=== PATIENT | male | born 1960 | race Two or more races ===

== ENCOUNTER 2025-04-17 10:16 | Outpatient (CLI) | payer OTHER ==
[2025-04-17 11:01] LABS: Hematocrit 48.4 % (41.0-53.0); Hemoglobin 16.9 g/dL (13.5-17.5); Mean Corpuscular Hemoglobin 32.3 pg (28.0-32.0); Mean Corpuscular Volume 92.5 fL (80.0-100.0); Nucleated Red Blood Cells % 0.1 %
[2025-04-17 11:05] LABS: Urine Protein, UAD Negative (Negative)
[2025-04-17 11:31] LABS: Albumin 3.9 g/dL (3.2-4.8); Anion Gap 9 (5-15); BUN/Creatinine Ratio 9.4 (10.0-20.0); Calcium 8.8 mg/dL (8.7-10.4); Carbon Dioxide 27 mmol/L (20-31); Chloride 101 mmol/L (98-107); Potassium 4.4 mmol/L (3.5-5.1); Sodium 137 mmol/L (136-145); Total Protein 7.8 g/dL (5.7-8.2); Triglycerides 116 mg/dL (< 150)
[2025-04-17 11:32] LABS: Bilirubin, Total 1.1 mg/dL (0.2-1.0); Cholesterol 140 mg/dL (< 200); HDL Cholesterol 44 mg/dL (40-59)
[2025-04-17 11:38] LABS: Alanine Aminotransferase 165 U/L (7-40); Alkaline Phosphatase 245 U/L (46-116); Blood Urea Nitrogen 8 mg/dL (9-23); Glucose 226 mg/dL (74-106)
== END 2025-04-17 17:00 | disposition home or self-care (01) ==
LOC: LAB 10:16
PROVIDERS: ATTEND Student in an Organized Health Care Education/Training Program
DX: E55.9 Vitamin D deficiency, unspecified (principal); R73.9 Hyperglycemia, unspecified; R03.0 Elevated blood-pressure reading, without diagnosis of hypertension; R35.1 Nocturia
CPT/HCPCS: 80053; 80061; 81001; 82306; 82785; 83036; 84153; 86003